=== PATIENT | male | born 2000 | race African-American/Black ===

== ENCOUNTER 2023-07-30 03:25 | Emergency (ER) | payer OTHER ==
[~2023-07-30] VITALS: Ht 175.3 cm; Wt 75.0 kg
[2023-07-30 03:40] VITALS: TEMP 97.9; O2SAT 99
[2023-07-30 06:00] VITALS: BP 120/70; PULSE 76; RESP 16
[2023-07-30] MEDS: IBUPROFEN 600MG TABLET PO ONE (06:00)
== END 2023-07-30 07:58 | disposition home or self-care (01) ==
LOC: ER 03:25
DX: S20.214A Contusion of middle front wall of thorax, initial encounter (principal); J45.909 Unspecified asthma, uncomplicated; Z98.890 Other specified postprocedural states; V49.9XXA Car occupant (driver) (passenger) injured in unspecified traffic accident, initial encounter; Y93.89 Activity, other specified; Y92.89 Other specified places as the place of occurrence of the external cause; Y99.8 Other external cause status
CPT/HCPCS: 71045; 99283